=== PATIENT | female | born 1980 | race Caucasian/White ===

== ENCOUNTER → 2016-12-10 | Outpatient (CLI) | payer OTHER | LOC: KOH-I 13:00 | DX: R22.42 Localized swelling, mass and lump, left lower limb (principal) | CPT/HCPCS: 76881 ==

== ENCOUNTER 2021-04-18 20:44 | Emergency (ER) | payer OTHER ==
[2021-04-18 21:24] LABS: HEMOGLOBIN 14.4 gm/dl (12.3-15.3); RED BLOOD COUNT 4.6 M/UL (4.00-5.10); WHITE BLOOD COUNT 14.2 K/UL (4.5-11.0)
[2021-04-18 21:37] LABS: BUN/CREATININE RATIO 10 (0-10)
== END 2021-04-18 22:45 ==
LOC: ER1 20:44
PROVIDERS: Family Medicine
DX: T43.4X1A Poisoning by butyrophenone and thiothixene neuroleptics, accidental (unintentional), initial encounter (principal); M62.838 Other muscle spasm; G24.9 Dystonia, unspecified; F17.200 Nicotine dependence, unspecified, uncomplicated
CPT/HCPCS: 80053; 80307; 82803; 85025; 93005; 96374; 99285; J1200; J7030